=== PATIENT | male | born 1945 | race Caucasian/White ===

== ENCOUNTER 2016-10-23 13:27 | Inpatient (IN) | payer MEDICARE, OTHER ==
[2016-10-23 15:22] VITALS: BMI 50.5
[2016-10-23] MEDS ORDERED: Dextrose 5% in Water 1,000 ML IV PRN (16:57)
[2016-10-23] MEDS ORDERED: Insulin Regular 300 UNITS/3 ML VIAL SC PRN (16:57)
[2016-10-23] MEDS ORDERED: Dextrose 50% Abboject 50 ML SYRINGE SLOW IVP PRN (16:57)
[2016-10-23] MEDS: Carvedilol 3.125 MG TAB PO SCH (18:08)
[2016-10-23 18:19] LABS: Hemoglobin 11.3 g/dL (14.0-18.0); Platelet Count 197 thou/uL (130-400)
[2016-10-23] MEDS: Insulin NPH/Reg Insulin Hm 300 UNITS/3 ML VIAL SC SCH (18:19)
[2016-10-23] MEDS: Insulin Regular 300 UNITS/3 ML VIAL SC PRN (18:38)
[2016-10-23] MEDS: PROVENTIL INHALER 6.7 G (200 INHALATIONS) INH SCH ×2 (18:45→21:37)
[2016-10-23] MEDS ORDERED: Furosemide 40 MG TAB PO SCH (21:00)
[2016-10-23] MEDS: Mometasone/Formoterol 60 PUFF AER INH SCH (21:25)
[2016-10-23] MEDS: Enoxaparin Sodium 100 MG/ML SYRINGE SC SCH (21:28)
[2016-10-23] MEDS: Famotidine 20 MG TAB PO SCH (21:28)
[2016-10-23] MEDS: QUETIAPINE FUMARATE 25 MG PO SCH (21:39)
--- NOTE | 2016-10-23 23:09 | HP ---
DATE OF ADMISSION: 10/23/2016 SWING BED ADMISSION NOTE REASON FOR TRANSFER: Debilitation with weakness and extremely poor long-term prognosis. HISTORY OF PRESENT ILLNESS: Patient is a 71-year-old male who has been in and out of the hospital for almost a month now. Apparently, he was admitted to [facility] the end of September where he stayed for at least a week in the hospital there and was discharge d to a [facility] in the [place] area. After a short stay in the [place], a [facility], avinash olivas was discharged to home under the care of his son and apparently, had an episode of respiratory significant decompensation, hypoxia, and altered mental status where he was sent to the emergency ro om and admitted to [facility] on 10/14/2016. During his hospital stay, he ocampo d waxing and waning of mental status. He was treated for COPD exacerbation as well as acute on film booker yany congestive heart failure exacerbation. His overall prognosis was extremely poor. He had some s light improvement in his diuresis and his respiratory status, but due to his end-stage COPD, his leg al blindness, and overall poor quality of life, has discussions with his son who is his primary deci evens maker and caregiver. Son decided that the patient be appropriate for hospice, but after furthe r discussions, son decided instead see if patient would be eligible for either swing bed or long-ter m care at a nursing facility under [employer] benefits. 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 PAST MEDICAL HISTORY: 1. Congestive heart failure. 2. Chronic obstructive pulmonary disease. 3. Sleep apnea, on CPAP device. 4. Diabetes mellitus, insulin dependent. 5. Hypertension. 6. Hyperlipidemia. 7. Legal blindness. 8. Severe peripheral neuropathy. 9. Coronary artery disease. 10. Depression. 11. Poor debilitation, wheelchair bound status at baseline. PAST SURGICAL HISTORY: Coronary artery bypass x3 in 2005 with multiple stents to the lower extremit ies for peripheral vascular disease. CURRENT MEDICATIONS: Patient was on aspirin 325 mg daily, Coreg 3.125 mg b.i.d., Lasix 40 mg b.i.d. , Seroquel 25 mg b.i.d., acetazolamide 250 mg daily, Ventolin inhalers as needed, vitamin B tablets daily, folic acid daily, Dulera 200/5 mcg two puffs b.i.d., metformin 1000 mg b.i.d., and insulin 70 /30 of Humulin 35 units b.i.d., [place] 10/325 p.o. every 4 hours p.r.n. for chronic back pain. REVIEW OF SYSTEMS: The patient is a poor historian by his report. He reports some mild constipatio n. Denies any current chest pain or shortness of breath above his baseline. He denies any recent c hest pain. His appetite he reports has improved since he has been hospitalized. The patient report s some chronic constipation, recently exacerbated during his hospital stay. The patient reports chr onic decreased sensation to his extremities with wheelchair bound status. The patient denies any dy suria, hematuria, or change in urinary frequency. The patient has chronic rash consistent with sebo rrheic dermatitis and he has chronic back pain, which is at its baseline. PHYSICAL EXAMINATION: GENERAL: Obese white male, alert and oriented x2, but extremely somnolent, but awakens when aroused . VITAL SIGNS: Temperature 98.6, O2 saturation was 94% on 4 liters, blood pressure 129/59, respirator y rate 22, pulse was 73. HEENT: Atraumatic, normocephalic. Extraocular movements are intact. Oropharynx, mucous membranes were moist. NECK: Supple, no masses palpated. CHEST: Heart sounds were distant as well, but regular. ABDOMEN: Obese, soft, nontender, and nondistended. No masses were palpated. EXTREMITIES: No significant edema at this time. Poor sensation to palpation of upper and lower ext remities bilaterally. SKIN: Showed a scaly rash with underlying erythema along the hairline of the powers and scalp, insid e to the nose. ASSESSMENT AND PLAN: 1. Chronic obstructive pulmonary disease, acute on chronic exacerbation, end-stage O2 dependent. T he patient's overall prognosis is extremely poor. We will continue him on Dulera and nebs p.r.n. as well as oxygen to keep saturations greater than 90%. 2. Congestive heart failure with a history of coronary artery disease. Patient will continue his L asix 40 mg b.i.d. We will watch for need for potassium supplementation. 3. Sleep apnea. Patient will continue CPAP device. 4. Diabetes mellitus. We will continue his 70/30 twice a day with a sliding scale coverage as well as metformin. 5. Seborrheic dermatitis. We will treat with econazole cream. 6. Disposition. Patient's overall quality of life is extremely poor. He is legally blind, unable to ambulate. He is having difficulty with transfers. He has been in and out of the hospital now fo r almost a month. There was initial consideration for hospice, which may need to be reevaluated if patient continues to have episodes of exacerbation. Patient is with waxing and waning of mental sta tus with having difficulty making decisions as far as his overall status and plan of care. Patient' s son is actively involved, his medical decision maker. At this time, once patient to be a DNR and consider mcf[facility] placement and/or hospice in the near future if appropriate. At this time, we will initiate physical therapy and occupational therapy to see if patient has any improvement in his status. Again, his overall prognosis is extremely poor.
[2016-10-24] MEDS: PROVENTIL INHALER 6.7 G (200 INHALATIONS) INH SCH ×6 (00:59→21:17)
[2016-10-24] MEDS: Furosemide 40 MG TAB PO SCH ×2 (05:52→14:46)
[2016-10-24] MEDS: Milk Of Magnesia 30 ML UDCUP PO PRN (05:52)
[2016-10-24 06:23] LABS: #Basophils 0.1 thou/uL (0.0-0.2); #Eosinphils 0.2 thou/uL (0.0-0.7); #Lymphocytes 1.1 thou/uL (1.20-3.40); #Monocytes 0.9 thou/uL (0.11-0.59); %Basophils 0.6 % (0.0-1.0); %Eosinophils 2.4 % (0.0-10.0); %Lymphocytes 10.3 % (21.0-51.0); %Monocytes 8.7 % (0.0-10.0); Hemoglobin 12.1 g/dL (14.0-18.0); Mean Corpuscular HGB CONC 32.1 g/dL (32.0-36.0); Mean Corpuscular Hemoglobin 29.5 pg (27.0-31.0); Mean Corpuscular Volume 92.1 fl (80.0-94.0); Platelet Count 213 thou/uL (130-400); Red Blood Cell (RBC) Count 4.11 mill/uL (4.70-6.10); White Blood Cell (WBC) Count 10.2 thou/uL (4.8-10.8)
[2016-10-24 06:42] LABS: ALT (SGPT) 23 U/L (8-55); AST (SGOT) 14 U/L (5-34); Albumin 3.6 g/dL (3.4-4.8); Alkaline Phosphatase 96 U/L (40-150); Anion Gap 14 mmol/L (10-20); BUN (Urea Nitrogen) 39 mg/dL (8.4-25.7); Bilirubin, Total 0.4 mg/dL (0.2-1.2); Calc. Creatinine Clearance 140 mL/min (70-130); Calcium 9.6 mg/dL (7.8-10.44); Carbon Dioxide 26 mmol/L (23-31); Chloride 102 mmol/L (98-107); Estimated GFR-MDRD 68; Glucose 298 mg/dL (80-115); Potassium 4.4 mmol/L (3.5-5.1); Protein, Total 7.6 g/dL (5.8-8.1); Sodium 138 mmol/L (136-145)
[2016-10-24] MEDS: Cyanocobalamin (Vitamin B-12) 1,000 MCG TAB PO SCH (08:40)
[2016-10-24] MEDS: predniSONE 10 MG TAB PO SCH (08:40)
[2016-10-24] MEDS: Famotidine 20 MG TAB PO SCH ×2 (08:40→20:30)
[2016-10-24] MEDS: Aspirin 325 MG TAB PO SCH (08:43)
[2016-10-24] MEDS: Carvedilol 3.125 MG TAB PO SCH ×2 (08:43→16:54)
[2016-10-24] MEDS: Folic Acid 1 MG TAB PO SCH (08:43)
[2016-10-24] MEDS: Enoxaparin Sodium 100 MG/ML SYRINGE SC SCH ×2 (08:44→20:26)
[2016-10-24] MEDS: Insulin NPH/Reg Insulin Hm 300 UNITS/3 ML VIAL SC SCH ×2 (08:51→17:03)
[2016-10-24] MEDS: Insulin Regular 300 UNITS/3 ML VIAL SC PRN ×3 (09:07→18:03)
[2016-10-24] MEDS: Mometasone/Formoterol 60 PUFF AER INH SCH ×2 (09:10→20:30)
[2016-10-24] MEDS: Ketoconazole 2% Cream 15 gm Tube TOP SCH (09:35)
[2016-10-24] MEDS: Polyethylene Glycol 3350 17 GM Packet PO SCH ×3 (11:41→13:33)
[2016-10-24] MEDS: ACETAZOLAMIDE 250 MG PO SCH (11:41)
[2016-10-24] MEDS: QUETIAPINE FUMARATE 25 MG PO SCH ×2 (11:41→21:15)
[2016-10-24] MEDS: Bisacodyl 5 MG TAB PO PRN (14:46)
[2016-10-24] MEDS: HYDROcodone/Acetaminophen 10/325 mg Tablet PO PRN ×2 (15:53→21:33)
[2016-10-24] MEDS ORDERED: Magnesium Citrate 300 ML BOT PO SCH (21:00)
[2016-10-25] MEDS: PROVENTIL INHALER 6.7 G (200 INHALATIONS) INH SCH ×7 (01:05→20:14)
[2016-10-25] MEDS: HYDROcodone/Acetaminophen 10/325 mg Tablet PO PRN ×3 (04:57→20:08)
[2016-10-25] MEDS: Furosemide 40 MG TAB PO SCH ×2 (05:30→13:50)
[2016-10-25 06:41] LABS: Platelet Count 237 thou/uL (130-400)
[2016-10-25] MEDS ORDERED: Magnesium Citrate 300 ML BOT PO PRN (08:00)
[2016-10-25] MEDS: Insulin NPH/Reg Insulin Hm 300 UNITS/3 ML VIAL SC SCH ×2 (10:47→17:32)
[2016-10-25] MEDS: Insulin Regular 300 UNITS/3 ML VIAL SC PRN ×3 (10:48→17:31)
[2016-10-25] MEDS: Mometasone/Formoterol 60 PUFF AER INH SCH ×2 (10:49→20:10)
[2016-10-25] MEDS: Cyanocobalamin (Vitamin B-12) 1,000 MCG TAB PO SCH (10:55)
[2016-10-25] MEDS: Aspirin 325 MG TAB PO SCH (10:55)
[2016-10-25] MEDS: predniSONE 10 MG TAB PO SCH (10:56)
[2016-10-25] MEDS: Carvedilol 3.125 MG TAB PO SCH ×2 (10:56→17:29)
[2016-10-25] MEDS: Famotidine 20 MG TAB PO SCH ×2 (10:56→20:09)
[2016-10-25] MEDS: Enoxaparin Sodium 100 MG/ML SYRINGE SC SCH (10:57)
[2016-10-25] MEDS: Ketoconazole 2% Cream 15 gm Tube TOP SCH (11:01)
[2016-10-25] MEDS: Folic Acid 1 MG TAB PO SCH (11:02)
[2016-10-25] MEDS: ACETAZOLAMIDE 250 MG PO SCH (11:02)
[2016-10-25] MEDS: QUETIAPINE FUMARATE 25 MG PO SCH (11:03)
--- NOTE | 2016-10-25 12:40 | RAD ---
ACUTE ABDOMEN SERIES 10/25/2016 Several films are taken to cover the patient's abdomen. There is no distention of bowel to suggest obstruction. No free air was appreciated. There is perhaps some increase in fecal material in the colon. A rounded calcification or two are seen in the pelvis on the right side. The larger one is 2.5 cm in width. Its etiology is unclear, but it is benign in appearance. A chest film in the seri es shows mild cardiomegaly and some basilar atelectasis. There are no clear congestive changes give n the depth of inspiration. Degenerative changes are present in the spine. IMPRESSION: Nonspecific abdominal findings. POS: HOME
[2016-10-25] MEDS: Clindamycin 150 MG CAP PO SCH ×2 (15:10→20:08)
[2016-10-25] MEDS ORDERED: Fleet Enema 133 ML BOT FS SCH (17:15)
[2016-10-25] MEDS: Rivaroxaban 10 MG TAB PO SCH (17:28)
[2016-10-25] MEDS: Floranex Packet PO SCH (20:08)
[2016-10-26] MEDS: PROVENTIL INHALER 6.7 G (200 INHALATIONS) INH SCH ×3 (01:29→08:46)
[2016-10-26] MEDS: Furosemide 40 MG TAB PO SCH ×2 (06:17→13:21)
[2016-10-26 06:38] LABS: ALT (SGPT) 22 U/L (8-55); AST (SGOT) 14 U/L (5-34); Albumin 3.6 g/dL (3.4-4.8); Alkaline Phosphatase 85 U/L (40-150); Anion Gap 15 mmol/L (10-20); BUN (Urea Nitrogen) 30 mg/dL (8.4-25.7); Bilirubin, Total 0.4 mg/dL (0.2-1.2); Calc. Creatinine Clearance 125 mL/min (70-130); Carbon Dioxide 33 mmol/L (23-31); Chloride 98 mmol/L (98-107); Estimated GFR-MDRD 59; Glucose 231 mg/dL (80-115); Potassium 4.7 mmol/L (3.5-5.1); Protein, Total 7.6 g/dL (5.8-8.1); Sodium 141 mmol/L (136-145)
[2016-10-26 07:10] LABS: #Basophils 0.1 thou/uL (0.0-0.2); #Eosinphils 0.2 thou/uL (0.0-0.7); #Lymphocytes 1.9 thou/uL (1.20-3.40); #Monocytes 0.9 thou/uL (0.11-0.59); #Neutrophils 5.3 thou/uL (1.40-6.50); %Basophils 0.7 % (0.0-1.0); %Eosinophils 2.1 % (0.0-10.0); %Lymphocytes 23.1 % (21.0-51.0); %Monocytes 10.9 % (0.0-10.0); %Neutrophils 63.3 % (42.0-75.0); Mean Corpuscular Hemoglobin 28.9 pg (27.0-31.0); Mean Corpuscular Volume 90.4 fl (80.0-94.0); Mean Platelet Volume 7.6 fL (7.4-10.4); Platelet Count 237 thou/uL (130-400); RBC Distribution Width 14.3 % (11.5-14.5); Red Blood Cell (RBC) Count 4.13 mill/uL (4.70-6.10); White Blood Cell (WBC) Count 8.4 thou/uL (4.8-10.8)
[2016-10-26] MEDS: Floranex Packet PO SCH ×2 (08:42→20:15)
[2016-10-26] MEDS: Clindamycin 150 MG CAP PO SCH ×3 (08:42→20:14)
[2016-10-26] MEDS: Aspirin 325 MG TAB PO SCH (08:42)
[2016-10-26] MEDS: Cyanocobalamin (Vitamin B-12) 1,000 MCG TAB PO SCH (08:43)
[2016-10-26] MEDS: Famotidine 20 MG TAB PO SCH ×2 (08:44→20:14)
[2016-10-26] MEDS: predniSONE 10 MG TAB PO SCH (08:44)
[2016-10-26] MEDS: Folic Acid 1 MG TAB PO SCH (08:45)
[2016-10-26] MEDS: Carvedilol 3.125 MG TAB PO SCH ×2 (08:45→17:33)
[2016-10-26] MEDS: Ketoconazole 2% Cream 15 gm Tube TOP SCH (08:47)
[2016-10-26] MEDS: Mometasone/Formoterol 60 PUFF AER INH SCH ×2 (08:49→20:12)
[2016-10-26] MEDS: ACETAZOLAMIDE 250 MG PO SCH (08:49)
[2016-10-26] MEDS: Polyethylene Glycol 3350 17 GM Packet PO SCH (08:49)
[2016-10-26] MEDS: HYDROcodone/Acetaminophen 10/325 mg Tablet PO PRN ×4 (08:51→21:42)
[2016-10-26] MEDS: Insulin NPH/Reg Insulin Hm 300 UNITS/3 ML VIAL SC SCH ×2 (09:02→17:37)
[2016-10-26] MEDS: Ventolin HFA Inhaler 60 PUFF INHALER INH SCH ×3 (13:26→20:12)
[2016-10-26] MEDS: Insulin Regular 300 UNITS/3 ML VIAL SC PRN ×2 (13:36→18:22)
[2016-10-26] MEDS: Rivaroxaban 10 MG TAB PO SCH (17:33)
[2016-10-27] MEDS: Ventolin HFA Inhaler 60 PUFF INHALER INH SCH ×6 (02:14→21:14)
[2016-10-27] MEDS: HYDROcodone/Acetaminophen 10/325 mg Tablet PO PRN ×5 (03:45→21:22)
[2016-10-27] MEDS: Furosemide 40 MG TAB PO SCH ×2 (05:50→12:57)
[2016-10-27] MEDS: Aspirin 325 MG TAB PO SCH (07:55)
[2016-10-27] MEDS: Floranex Packet PO SCH ×2 (07:55→21:20)
[2016-10-27] MEDS: Clindamycin 150 MG CAP PO SCH ×3 (07:57→21:21)
[2016-10-27] MEDS: Famotidine 20 MG TAB PO SCH ×2 (07:57→21:20)
[2016-10-27] MEDS: Carvedilol 3.125 MG TAB PO SCH ×2 (07:57→16:50)
[2016-10-27] MEDS: predniSONE 10 MG TAB PO SCH (07:58)
[2016-10-27] MEDS: Cyanocobalamin (Vitamin B-12) 1,000 MCG TAB PO SCH (07:59)
[2016-10-27] MEDS: Folic Acid 1 MG TAB PO SCH (07:59)
[2016-10-27] MEDS: Insulin Regular 300 UNITS/3 ML VIAL SC PRN ×3 (08:08→16:58)
[2016-10-27] MEDS: Insulin NPH/Reg Insulin Hm 300 UNITS/3 ML VIAL SC SCH ×2 (08:08→16:48)
[2016-10-27] MEDS: Mometasone/Formoterol 60 PUFF AER INH SCH ×2 (08:13→21:16)
[2016-10-27] MEDS: Ketoconazole 2% Cream 15 gm Tube TOP SCH (08:16)
[2016-10-27] MEDS: ACETAZOLAMIDE 250 MG PO SCH (10:51)
[2016-10-27] MEDS: Polyethylene Glycol 3350 17 GM Packet PO SCH (11:27)
[2016-10-27] MEDS: Rivaroxaban 10 MG TAB PO SCH (16:50)
[2016-10-28] MEDS: Ventolin HFA Inhaler 60 PUFF INHALER INH SCH ×6 (01:23→20:57)
[2016-10-28] MEDS: HYDROcodone/Acetaminophen 10/325 mg Tablet PO PRN ×3 (01:24→09:28)
[2016-10-28 05:20] LABS: Hemoglobin 12.2 g/dL (14.0-18.0); Platelet Count 242 thou/uL (130-400)
[2016-10-28] MEDS: Furosemide 40 MG TAB PO SCH ×2 (05:35→15:51)
[2016-10-28] MEDS: Insulin Regular 300 UNITS/3 ML VIAL SC PRN ×3 (08:28→18:04)
[2016-10-28] MEDS: Insulin NPH/Reg Insulin Hm 300 UNITS/3 ML VIAL SC SCH ×2 (08:29→18:04)
[2016-10-28] MEDS: Polyethylene Glycol 3350 17 GM Packet PO SCH (08:39)
[2016-10-28] MEDS: Ketoconazole 2% Cream 15 gm Tube TOP SCH (08:39)
[2016-10-28] MEDS: Carvedilol 3.125 MG TAB PO SCH ×2 (08:40→18:05)
[2016-10-28] MEDS: Cyanocobalamin (Vitamin B-12) 1,000 MCG TAB PO SCH (08:41)
[2016-10-28] MEDS: predniSONE 10 MG TAB PO SCH (08:42)
[2016-10-28] MEDS: Famotidine 20 MG TAB PO SCH ×2 (08:43→20:56)
[2016-10-28] MEDS: Floranex Packet PO SCH ×2 (08:43→20:55)
[2016-10-28] MEDS: Clindamycin 150 MG CAP PO SCH ×3 (08:43→20:56)
[2016-10-28] MEDS: Aspirin 325 MG TAB PO SCH (08:43)
[2016-10-28] MEDS: Folic Acid 1 MG TAB PO SCH (08:43)
[2016-10-28] MEDS: Mometasone/Formoterol 60 PUFF AER INH SCH ×2 (08:44→20:59)
[2016-10-28] MEDS: ACETAZOLAMIDE 250 MG PO SCH (08:46)
[2016-10-28] MEDS: Pregabalin 75 MG CAP PO SCH ×2 (10:26→20:56)
[2016-10-28] MEDS: Rivaroxaban 10 MG TAB PO SCH (18:05)
[2016-10-29] MEDS: Ventolin HFA Inhaler 60 PUFF INHALER INH SCH ×6 (01:14→20:36)
[2016-10-29] MEDS: Furosemide 40 MG TAB PO SCH ×2 (05:45→13:10)
[2016-10-29] MEDS: Polyethylene Glycol 3350 17 GM Packet PO SCH (09:39)
[2016-10-29] MEDS: Aspirin 325 MG TAB PO SCH (09:44)
[2016-10-29] MEDS: Clindamycin 150 MG CAP PO SCH ×3 (09:44→20:34)
[2016-10-29] MEDS: Cyanocobalamin (Vitamin B-12) 1,000 MCG TAB PO SCH (09:46)
[2016-10-29] MEDS: Folic Acid 1 MG TAB PO SCH (09:47)
[2016-10-29] MEDS: Famotidine 20 MG TAB PO SCH ×2 (09:47→20:34)
[2016-10-29] MEDS: predniSONE 10 MG TAB PO SCH (09:50)
[2016-10-29] MEDS: Pregabalin 75 MG CAP PO SCH ×2 (09:51→20:40)
[2016-10-29] MEDS: Carvedilol 3.125 MG TAB PO SCH ×2 (09:53→16:03)
[2016-10-29] MEDS: Ketoconazole 2% Cream 15 gm Tube TOP SCH (09:54)
[2016-10-29] MEDS: Mometasone/Formoterol 60 PUFF AER INH SCH ×2 (09:54→20:35)
[2016-10-29] MEDS: Floranex Packet PO SCH ×2 (09:54→20:33)
[2016-10-29] MEDS: ACETAZOLAMIDE 250 MG PO SCH (09:56)
[2016-10-29] MEDS: Insulin Regular 300 UNITS/3 ML VIAL SC PRN ×3 (09:57→18:14)
[2016-10-29] MEDS: Insulin NPH/Reg Insulin Hm 300 UNITS/3 ML VIAL SC SCH ×2 (09:58→18:14)
[2016-10-29] MEDS: HYDROcodone/Acetaminophen 10/325 mg Tablet PO PRN ×2 (11:08→16:03)
[2016-10-29] MEDS: Milk Of Magnesia 30 ML UDCUP PO PRN (12:02)
[2016-10-29] MEDS: Bisacodyl 5 MG TAB PO PRN (16:02)
[2016-10-29] MEDS: Rivaroxaban 10 MG TAB PO SCH ×2 (16:35→20:37)
[2016-10-29 18:06] LABS: Anion Gap 18 mmol/L (10-20); BUN (Urea Nitrogen) 40 mg/dL (8.4-25.7); Calc. Creatinine Clearance 113 mL/min (70-130); Calcium 10.1 mg/dL (7.8-10.44); Carbon Dioxide 28 mmol/L (23-31); Chloride 96 mmol/L (98-107); Estimated GFR-MDRD 53; Glucose 372 mg/dL (80-115); Potassium 4.8 mmol/L (3.5-5.1); Sodium 137 mmol/L (136-145)
[2016-10-29] MEDS ORDERED: Rivaroxaban 10 MG TAB ONE (20:32)
[2016-10-29] MEDS: Magnesium Citrate 300 ML BOT PO SCH (20:33)
[2016-10-30] MEDS: Ventolin HFA Inhaler 60 PUFF INHALER INH SCH ×6 (00:50→20:42)
[2016-10-30] MEDS: HYDROcodone/Acetaminophen 10/325 mg Tablet PO PRN ×3 (00:55→17:30)
[2016-10-30 05:20] LABS: Hemoglobin 13.2 g/dL (14.0-18.0); Platelet Count 234 thou/uL (130-400)
[2016-10-30] MEDS: Furosemide 40 MG TAB PO SCH ×2 (05:22→14:02)
[2016-10-30] MEDS: Mometasone/Formoterol 60 PUFF AER INH SCH ×2 (09:48→20:43)
[2016-10-30] MEDS: Polyethylene Glycol 3350 17 GM Packet PO SCH (10:13)
[2016-10-30] MEDS: Milk Of Magnesia 30 ML UDCUP PO PRN ×2 (10:20→10:41)
[2016-10-30] MEDS: Aspirin 325 MG TAB PO SCH (10:20)
[2016-10-30] MEDS: Clindamycin 150 MG CAP PO SCH ×3 (10:22→20:41)
[2016-10-30] MEDS: Folic Acid 1 MG TAB PO SCH (10:23)
[2016-10-30] MEDS: Cyanocobalamin (Vitamin B-12) 1,000 MCG TAB PO SCH (10:24)
[2016-10-30] MEDS: Ketoconazole 2% Cream 15 gm Tube TOP SCH (10:30)
[2016-10-30] MEDS: Famotidine 20 MG TAB PO SCH ×2 (10:30→20:41)
[2016-10-30] MEDS: Carvedilol 3.125 MG TAB PO SCH ×2 (10:31→17:30)
[2016-10-30] MEDS: predniSONE 10 MG TAB PO SCH (10:34)
[2016-10-30] MEDS: Pregabalin 75 MG CAP PO SCH ×2 (10:36→20:41)
[2016-10-30] MEDS: Floranex Packet PO SCH ×2 (10:37→20:41)
[2016-10-30] MEDS: ACETAZOLAMIDE 250 MG PO SCH (10:38)
[2016-10-30] MEDS: Insulin NPH/Reg Insulin Hm 300 UNITS/3 ML VIAL SC SCH ×2 (10:39→17:40)
[2016-10-30] MEDS: Insulin Regular 300 UNITS/3 ML VIAL SC PRN ×3 (10:40→17:40)
[2016-10-30] MEDS: Bisacodyl 5 MG TAB PO PRN (13:44)
[2016-10-30] MEDS ORDERED: Clindamycin 150 MG CAP ONE (17:17)
[2016-10-30] MEDS: Rivaroxaban 10 MG TAB PO SCH (17:29)
[2016-10-30] MEDS: Magnesium Citrate 300 ML BOT PO SCH (17:34)
[2016-10-31] MEDS: Ventolin HFA Inhaler 60 PUFF INHALER INH SCH ×6 (00:01→22:30)
[2016-10-31] MEDS: HYDROcodone/Acetaminophen 10/325 mg Tablet PO PRN ×2 (05:47→18:14)
[2016-10-31] MEDS: Furosemide 40 MG TAB PO SCH ×2 (05:47→16:09)
[2016-10-31] MEDS ORDERED: Clindamycin 150 MG CAP ONE ×5 (08:04→21:18)
[2016-10-31] MEDS: Carvedilol 3.125 MG TAB PO SCH ×2 (10:46→17:48)
[2016-10-31] MEDS: Floranex Packet PO SCH ×2 (10:47→22:18)
[2016-10-31] MEDS: Folic Acid 1 MG TAB PO SCH (10:47)
[2016-10-31] MEDS: Cyanocobalamin (Vitamin B-12) 1,000 MCG TAB PO SCH (10:47)
[2016-10-31] MEDS: Clindamycin 150 MG CAP PO SCH ×3 (10:48→22:18)
[2016-10-31] MEDS: Aspirin 325 MG TAB PO SCH (10:49)
[2016-10-31] MEDS: Polyethylene Glycol 3350 17 GM Packet PO SCH (10:50)
[2016-10-31] MEDS: Ketoconazole 2% Cream 15 gm Tube TOP SCH (10:51)
[2016-10-31] MEDS: Famotidine 20 MG TAB PO SCH ×2 (10:51→22:18)
[2016-10-31] MEDS: predniSONE 10 MG TAB PO SCH (10:52)
[2016-10-31] MEDS: ACETAZOLAMIDE 250 MG PO SCH (10:53)
[2016-10-31] MEDS: Mometasone/Formoterol 60 PUFF AER INH SCH ×2 (10:54→22:22)
[2016-10-31] MEDS: Pregabalin 75 MG CAP PO SCH ×2 (10:56→22:19)
[2016-10-31] MEDS: Insulin NPH/Reg Insulin Hm 300 UNITS/3 ML VIAL SC SCH ×2 (10:58→17:54)
[2016-10-31] MEDS: Insulin Regular 300 UNITS/3 ML VIAL SC PRN ×3 (10:59→19:05)
[2016-10-31] MEDS: Rivaroxaban 10 MG TAB PO SCH (17:48)
[2016-11-01] MEDS: Ventolin HFA Inhaler 60 PUFF INHALER INH SCH ×6 (01:19→20:42)
[2016-11-01] MEDS: HYDROcodone/Acetaminophen 10/325 mg Tablet PO PRN ×2 (01:28→09:31)
[2016-11-01] MEDS: Furosemide 40 MG TAB PO SCH ×2 (05:33→14:02)
[2016-11-01 05:57] LABS: Hemoglobin 12.4 g/dL (14.0-18.0); Platelet Count 227 thou/uL (130-400)
[2016-11-01] MEDS ORDERED: Clindamycin 150 MG CAP ONE (08:54)
[2016-11-01] MEDS: Insulin NPH/Reg Insulin Hm 300 UNITS/3 ML VIAL SC SCH ×2 (09:19→18:10)
[2016-11-01] MEDS: Insulin Regular 300 UNITS/3 ML VIAL SC PRN ×4 (09:20→22:57)
[2016-11-01] MEDS: Clindamycin 150 MG CAP PO SCH ×3 (09:21→20:40)
[2016-11-01] MEDS: Aspirin 325 MG TAB PO SCH (09:23)
[2016-11-01] MEDS: Cyanocobalamin (Vitamin B-12) 1,000 MCG TAB PO SCH (09:23)
[2016-11-01] MEDS: Floranex Packet PO SCH ×2 (09:23→20:40)
[2016-11-01] MEDS: Folic Acid 1 MG TAB PO SCH (09:24)
[2016-11-01] MEDS: Carvedilol 3.125 MG TAB PO SCH ×2 (09:25→18:09)
[2016-11-01] MEDS: ACETAZOLAMIDE 250 MG PO SCH (09:26)
[2016-11-01] MEDS: Polyethylene Glycol 3350 17 GM Packet PO SCH (09:27)
[2016-11-01] MEDS: Ketoconazole 2% Cream 15 gm Tube TOP SCH (09:28)
[2016-11-01] MEDS: predniSONE 10 MG TAB PO SCH (09:29)
[2016-11-01] MEDS: Pregabalin 75 MG CAP PO SCH ×2 (09:30→20:40)
[2016-11-01] MEDS: Famotidine 20 MG TAB PO SCH ×2 (09:55→20:41)
[2016-11-01] MEDS: Mometasone/Formoterol 60 PUFF AER INH SCH ×2 (09:55→20:42)
[2016-11-01] MEDS: Rivaroxaban 10 MG TAB PO SCH (18:09)
[2016-11-02] MEDS: HYDROcodone/Acetaminophen 10/325 mg Tablet PO PRN ×3 (00:51→17:42)
[2016-11-02] MEDS: Ventolin HFA Inhaler 60 PUFF INHALER INH SCH ×3 (00:52→10:08)
[2016-11-02] MEDS: Furosemide 40 MG TAB PO SCH ×2 (05:34→13:53)
[2016-11-02] MEDS: Polyethylene Glycol 3350 17 GM Packet PO SCH (09:40)
[2016-11-02] MEDS: predniSONE 10 MG TAB PO SCH (09:40)
[2016-11-02] MEDS: Carvedilol 3.125 MG TAB PO SCH ×2 (09:41→17:32)
[2016-11-02] MEDS: Cyanocobalamin (Vitamin B-12) 1,000 MCG TAB PO SCH (09:41)
[2016-11-02] MEDS: Pregabalin 75 MG CAP PO SCH ×2 (09:43→21:19)
[2016-11-02] MEDS: Folic Acid 1 MG TAB PO SCH (09:44)
[2016-11-02] MEDS: Insulin NPH/Reg Insulin Hm 300 UNITS/3 ML VIAL SC SCH ×2 (09:44→17:34)
[2016-11-02] MEDS: Famotidine 20 MG TAB PO SCH ×2 (09:44→21:19)
[2016-11-02] MEDS: Aspirin 325 MG TAB PO SCH (09:53)
[2016-11-02] MEDS: Insulin Regular 300 UNITS/3 ML VIAL SC PRN ×4 (09:58→21:19)
[2016-11-02] MEDS: Mometasone/Formoterol 60 PUFF AER INH SCH ×2 (10:03→21:20)
[2016-11-02] MEDS: Ketoconazole 2% Cream 15 gm Tube TOP SCH (10:05)
[2016-11-02] MEDS: ACETAZOLAMIDE 250 MG PO SCH (10:08)
[2016-11-02] MEDS: PROVENTIL INHALER 6.7 G (200 INHALATIONS) INH SCH ×4 (11:22→23:47)
[2016-11-02] MEDS ORDERED: Ventolin HFA Inhaler 60 PUFF INHALER INH SCH (16:15)
[2016-11-02] MEDS: Rivaroxaban 10 MG TAB PO SCH (17:32)
[2016-11-03] MEDS: PROVENTIL INHALER 6.7 G (200 INHALATIONS) INH SCH ×6 (03:54→23:43)
[2016-11-03] MEDS: Furosemide 40 MG TAB PO SCH ×2 (05:01→14:30)
[2016-11-03 05:30] LABS: Hemoglobin 12.4 g/dL (14.0-18.0); Platelet Count 194 thou/uL (130-400)
[2016-11-03 05:44] LABS: ALT (SGPT) 26 U/L (8-55); AST (SGOT) 15 U/L (5-34); Albumin 3.5 g/dL (3.4-4.8); Alkaline Phosphatase 73 U/L (40-150); Anion Gap 16 mmol/L (10-20); BUN (Urea Nitrogen) 40 mg/dL (8.4-25.7); Bilirubin, Total 0.3 mg/dL (0.2-1.2); Calc. Creatinine Clearance 125 mL/min (70-130); Calcium 9.9 mg/dL (7.8-10.44); Chloride 102 mmol/L (98-107); Estimated GFR-MDRD 59; Globulin 3.4 g/dL (2.4-3.5); Glucose 235 mg/dL (80-115); Potassium 4.2 mmol/L (3.5-5.1); Protein, Total 6.9 g/dL (5.8-8.1); Sodium 138 mmol/L (136-145)
[2016-11-03 05:52] LABS: Carbon Dioxide 24 mmol/L (23-31)
[2016-11-03] MEDS: Polyethylene Glycol 3350 17 GM Packet PO SCH (09:23)
[2016-11-03] MEDS: ACETAZOLAMIDE 250 MG PO SCH (09:24)
[2016-11-03] MEDS: Cyanocobalamin (Vitamin B-12) 1,000 MCG TAB PO SCH (09:25)
[2016-11-03] MEDS: Famotidine 20 MG TAB PO SCH ×2 (09:26→21:02)
[2016-11-03] MEDS: Folic Acid 1 MG TAB PO SCH (09:26)
[2016-11-03] MEDS: Aspirin 325 MG TAB PO SCH (09:26)
[2016-11-03] MEDS: Pregabalin 75 MG CAP PO SCH ×2 (09:27→21:01)
[2016-11-03] MEDS: predniSONE 10 MG TAB PO SCH (09:27)
[2016-11-03] MEDS: Carvedilol 3.125 MG TAB PO SCH ×2 (09:28→17:28)
[2016-11-03] MEDS: Insulin NPH/Reg Insulin Hm 300 UNITS/3 ML VIAL SC SCH ×2 (09:34→17:30)
[2016-11-03] MEDS: Insulin Regular 300 UNITS/3 ML VIAL SC PRN ×4 (09:35→21:20)
[2016-11-03] MEDS: Mometasone/Formoterol 60 PUFF AER INH SCH ×2 (09:37→21:07)
[2016-11-03] MEDS: Ketoconazole 2% Cream 15 gm Tube TOP SCH (09:37)
[2016-11-03] MEDS: HYDROcodone/Acetaminophen 10/325 mg Tablet PO PRN ×2 (11:57→21:19)
[2016-11-03] MEDS: Rivaroxaban 10 MG TAB PO SCH (17:28)
[2016-11-04] MEDS: PROVENTIL INHALER 6.7 G (200 INHALATIONS) INH SCH ×6 (04:31→23:02)
[2016-11-04] MEDS: Furosemide 40 MG TAB PO SCH ×2 (06:09→15:02)
[2016-11-04] MEDS: HYDROcodone/Acetaminophen 10/325 mg Tablet PO PRN ×2 (06:15→12:07)
[2016-11-04] MEDS: Aspirin 325 MG TAB PO SCH (09:22)
[2016-11-04] MEDS: Cyanocobalamin (Vitamin B-12) 1,000 MCG TAB PO SCH (09:22)
[2016-11-04] MEDS: predniSONE 10 MG TAB PO SCH (09:23)
[2016-11-04] MEDS: Polyethylene Glycol 3350 17 GM Packet PO SCH (09:25)
[2016-11-04] MEDS: Famotidine 20 MG TAB PO SCH ×2 (09:25→21:16)
[2016-11-04] MEDS: ACETAZOLAMIDE 250 MG PO SCH (09:25)
[2016-11-04] MEDS: Folic Acid 1 MG TAB PO SCH (09:25)
[2016-11-04] MEDS: Carvedilol 3.125 MG TAB PO SCH ×2 (09:25→17:13)
[2016-11-04] MEDS: Pregabalin 75 MG CAP PO SCH ×2 (09:26→21:16)
[2016-11-04] MEDS: Insulin Regular 300 UNITS/3 ML VIAL SC PRN ×3 (09:31→21:22)
[2016-11-04] MEDS: Ketoconazole 2% Cream 15 gm Tube TOP SCH (09:31)
[2016-11-04] MEDS: Insulin NPH/Reg Insulin Hm 300 UNITS/3 ML VIAL SC SCH ×2 (09:32→17:15)
[2016-11-04] MEDS: Mometasone/Formoterol 60 PUFF AER INH SCH ×2 (10:14→21:20)
[2016-11-04] MEDS: Rivaroxaban 10 MG TAB PO SCH (17:13)
[2016-11-05] MEDS: PROVENTIL INHALER 6.7 G (200 INHALATIONS) INH SCH ×6 (03:05→23:12)
[2016-11-05] MEDS: Furosemide 40 MG TAB PO SCH ×2 (05:52→13:52)
[2016-11-05] MEDS: HYDROcodone/Acetaminophen 10/325 mg Tablet PO PRN ×2 (05:52→15:43)
[2016-11-05 06:01] LABS: Hemoglobin 12.7 g/dL (14.0-18.0); Platelet Count 182 thou/uL (130-400)
[2016-11-05] MEDS: Insulin NPH/Reg Insulin Hm 300 UNITS/3 ML VIAL SC SCH ×2 (10:33→18:08)
[2016-11-05] MEDS: Insulin Regular 300 UNITS/3 ML VIAL SC PRN ×4 (10:37→23:12)
[2016-11-05] MEDS: Polyethylene Glycol 3350 17 GM Packet PO SCH (10:38)
[2016-11-05] MEDS: Cyanocobalamin (Vitamin B-12) 1,000 MCG TAB PO SCH (10:40)
[2016-11-05] MEDS: Folic Acid 1 MG TAB PO SCH (10:41)
[2016-11-05] MEDS: Carvedilol 3.125 MG TAB PO SCH ×2 (10:42→18:05)
[2016-11-05] MEDS: Aspirin 325 MG TAB PO SCH (10:42)
[2016-11-05] MEDS: Famotidine 20 MG TAB PO SCH ×2 (10:42→20:52)
[2016-11-05] MEDS: Ketoconazole 2% Cream 15 gm Tube TOP SCH (10:42)
[2016-11-05] MEDS: ACETAZOLAMIDE 250 MG PO SCH (10:42)
[2016-11-05] MEDS: predniSONE 10 MG TAB PO SCH (10:43)
[2016-11-05] MEDS: Pregabalin 75 MG CAP PO SCH ×2 (10:43→20:52)
[2016-11-05] MEDS: Mometasone/Formoterol 60 PUFF AER INH SCH ×2 (10:46→22:41)
[2016-11-05] MEDS: Rivaroxaban 10 MG TAB PO SCH (18:05)
[2016-11-06] MEDS: HYDROcodone/Acetaminophen 10/325 mg Tablet PO PRN ×2 (00:40→16:45)
[2016-11-06] MEDS: PROVENTIL INHALER 6.7 G (200 INHALATIONS) INH SCH ×6 (03:58→23:14)
[2016-11-06] MEDS: Polyethylene Glycol 3350 17 GM Packet PO SCH (09:06)
[2016-11-06] MEDS: ACETAZOLAMIDE 250 MG PO SCH (09:07)
[2016-11-06] MEDS: Mometasone/Formoterol 60 PUFF AER INH SCH ×2 (09:07→21:19)
[2016-11-06] MEDS: Ketoconazole 2% Cream 15 gm Tube TOP SCH (09:10)
[2016-11-06] MEDS: Cyanocobalamin (Vitamin B-12) 1,000 MCG TAB PO SCH (09:12)
[2016-11-06] MEDS: Aspirin 325 MG TAB PO SCH (09:13)
[2016-11-06] MEDS: Famotidine 20 MG TAB PO SCH ×2 (09:13→21:18)
[2016-11-06] MEDS: predniSONE 10 MG TAB PO SCH (09:15)
[2016-11-06] MEDS: Furosemide 40 MG TAB PO SCH ×2 (09:16→14:39)
[2016-11-06] MEDS: Folic Acid 1 MG TAB PO SCH (09:16)
[2016-11-06] MEDS: Carvedilol 3.125 MG TAB PO SCH ×2 (09:16→16:47)
[2016-11-06] MEDS: Pregabalin 75 MG CAP PO SCH ×2 (09:16→21:18)
[2016-11-06] MEDS: Insulin NPH/Reg Insulin Hm 300 UNITS/3 ML VIAL SC SCH ×2 (09:20→16:48)
[2016-11-06] MEDS: Insulin Regular 300 UNITS/3 ML VIAL SC PRN ×4 (09:22→22:11)
[2016-11-06] MEDS: Rivaroxaban 10 MG TAB PO SCH (16:46)
[2016-11-07] MEDS: HYDROcodone/Acetaminophen 10/325 mg Tablet PO PRN ×3 (01:15→21:17)
[2016-11-07] MEDS: PROVENTIL INHALER 6.7 G (200 INHALATIONS) INH SCH ×6 (03:57→20:47)
[2016-11-07] MEDS: Furosemide 40 MG TAB PO SCH ×2 (05:25→14:39)
[2016-11-07 06:12] LABS: Platelet Count 154 thou/uL (130-400)
[2016-11-07] MEDS: Milk Of Magnesia 30 ML UDCUP PO PRN (08:21)
[2016-11-07] MEDS: Polyethylene Glycol 3350 17 GM Packet PO SCH (08:21)
[2016-11-07] MEDS: Aspirin 325 MG TAB PO SCH (08:22)
[2016-11-07] MEDS: Cyanocobalamin (Vitamin B-12) 1,000 MCG TAB PO SCH (08:23)
[2016-11-07] MEDS: predniSONE 10 MG TAB PO SCH (08:24)
[2016-11-07] MEDS: Famotidine 20 MG TAB PO SCH ×2 (08:24→20:19)
[2016-11-07] MEDS: Carvedilol 3.125 MG TAB PO SCH ×2 (08:25→16:48)
[2016-11-07] MEDS: Folic Acid 1 MG TAB PO SCH (08:25)
[2016-11-07] MEDS: Pregabalin 75 MG CAP PO SCH ×2 (08:26→20:20)
[2016-11-07] MEDS: ACETAZOLAMIDE 250 MG PO SCH (08:27)
[2016-11-07] MEDS: Ketoconazole 2% Cream 15 gm Tube TOP SCH (08:28)
[2016-11-07] MEDS: Insulin NPH/Reg Insulin Hm 300 UNITS/3 ML VIAL SC SCH ×2 (08:29→16:49)
[2016-11-07] MEDS: Insulin Regular 300 UNITS/3 ML VIAL SC PRN ×4 (08:29→20:23)
[2016-11-07] MEDS: Mometasone/Formoterol 60 PUFF AER INH SCH ×2 (11:17→20:56)
[2016-11-07] MEDS: Rivaroxaban 10 MG TAB PO SCH (16:47)
[2016-11-07] MEDS ORDERED: FLU VACC TS2017-18 (>65YR) 0.5 ML SYRINGE IM ONE (21:00)
[2016-11-08] MEDS: PROVENTIL INHALER 6.7 G (200 INHALATIONS) INH SCH ×6 (03:46→23:59)
[2016-11-08] MEDS: Furosemide 40 MG TAB PO SCH ×2 (05:50→13:11)
[2016-11-08] MEDS: HYDROcodone/Acetaminophen 10/325 mg Tablet PO PRN ×2 (05:51→18:23)
[2016-11-08] MEDS: Insulin NPH/Reg Insulin Hm 300 UNITS/3 ML VIAL SC SCH ×2 (08:59→18:22)
[2016-11-08] MEDS: Polyethylene Glycol 3350 17 GM Packet PO SCH (09:00)
[2016-11-08] MEDS: Insulin Regular 300 UNITS/3 ML VIAL SC PRN ×4 (09:00→22:51)
[2016-11-08] MEDS: Aspirin 325 MG TAB PO SCH (09:01)
[2016-11-08] MEDS: Cyanocobalamin (Vitamin B-12) 1,000 MCG TAB PO SCH (09:03)
[2016-11-08] MEDS: Famotidine 20 MG TAB PO SCH ×2 (09:03→21:02)
[2016-11-08] MEDS: predniSONE 10 MG TAB PO SCH (09:04)
[2016-11-08] MEDS: Folic Acid 1 MG TAB PO SCH (09:05)
[2016-11-08] MEDS: Ketoconazole 2% Cream 15 gm Tube TOP SCH (09:05)
[2016-11-08] MEDS: Carvedilol 3.125 MG TAB PO SCH ×2 (09:06→18:21)
[2016-11-08] MEDS: ACETAZOLAMIDE 250 MG PO SCH (09:07)
[2016-11-08] MEDS: Mometasone/Formoterol 60 PUFF AER INH SCH ×2 (09:08→21:01)
[2016-11-08] MEDS: Pregabalin 75 MG CAP PO SCH ×2 (09:10→21:04)
[2016-11-08] MEDS ORDERED: Sodium Chloride 0.9% 50 ML ONE (10:17)
[2016-11-08 14:13] LABS: #Eosinphils 0.1 thou/uL (0.0-0.7); #Lymphocytes 1.4 thou/uL (1.20-3.40); #Monocytes 0.5 thou/uL (0.11-0.59); #Neutrophils 6.9 thou/uL (1.40-6.50); %Basophils 0.5 % (0.0-1.0); %Eosinophils 1.1 % (0.0-10.0); %Lymphocytes 15.5 % (21.0-51.0); %Monocytes 5.9 % (0.0-10.0); Mean Corpuscular HGB CONC 32.2 g/dL (32.0-36.0); Mean Corpuscular Volume 90.2 fl (80.0-94.0); Mean Platelet Volume 7.6 fL (7.4-10.4); Platelet Count 146 thou/uL (130-400); RBC Distribution Width 14.9 % (11.5-14.5); Red Blood Cell (RBC) Count 4.14 mill/uL (4.70-6.10); White Blood Cell (WBC) Count 8.9 thou/uL (4.8-10.8)
[2016-11-08 14:19] LABS: ALT (SGPT) 22 U/L (8-55); AST (SGOT) 12 U/L (5-34); Albumin 3.5 g/dL (3.4-4.8); Alkaline Phosphatase 79 U/L (40-150); Anion Gap 15 mmol/L (10-20); BUN (Urea Nitrogen) 34 mg/dL (8.4-25.7); Bilirubin, Total 0.2 mg/dL (0.2-1.2); Calc. Creatinine Clearance 138 mL/min (70-130); Calcium 9.9 mg/dL (7.8-10.44); Carbon Dioxide 26 mmol/L (23-31); Chloride 102 mmol/L (98-107); Estimated GFR-MDRD 67; Globulin 3.5 g/dL (2.4-3.5); Glucose 260 mg/dL (80-115); Potassium 4.5 mmol/L (3.5-5.1); Sodium 138 mmol/L (136-145)
[2016-11-08] MEDS: Rivaroxaban 10 MG TAB PO SCH (18:20)
[2016-11-09] MEDS: PROVENTIL INHALER 6.7 G (200 INHALATIONS) INH SCH ×3 (04:03→13:40)
[2016-11-09] MEDS: Furosemide 40 MG TAB PO SCH ×2 (05:27→13:39)
[2016-11-09] MEDS: HYDROcodone/Acetaminophen 10/325 mg Tablet PO PRN ×2 (05:27→17:37)
[2016-11-09 06:31] LABS: Hemoglobin 12.9 g/dL (14.0-18.0); Platelet Count 171 thou/uL (130-400)
[2016-11-09] MEDS: Insulin Regular 300 UNITS/3 ML VIAL SC PRN ×3 (08:36→16:38)
[2016-11-09] MEDS: Insulin NPH/Reg Insulin Hm 300 UNITS/3 ML VIAL SC SCH ×2 (08:37→16:37)
[2016-11-09] MEDS: Ketoconazole 2% Cream 15 gm Tube TOP SCH (08:38)
[2016-11-09] MEDS: Polyethylene Glycol 3350 17 GM Packet PO SCH (08:39)
[2016-11-09] MEDS: Aspirin 325 MG TAB PO SCH (08:40)
[2016-11-09] MEDS: Famotidine 20 MG TAB PO SCH ×2 (08:40→19:06)
[2016-11-09] MEDS: Cyanocobalamin (Vitamin B-12) 1,000 MCG TAB PO SCH (08:41)
[2016-11-09] MEDS: Folic Acid 1 MG TAB PO SCH (08:42)
[2016-11-09] MEDS: Carvedilol 3.125 MG TAB PO SCH ×2 (08:42→16:46)
[2016-11-09] MEDS: Pregabalin 75 MG CAP PO SCH ×2 (08:43→19:05)
[2016-11-09] MEDS: predniSONE 10 MG TAB PO SCH (08:44)
[2016-11-09] MEDS: ACETAZOLAMIDE 250 MG PO SCH (08:45)
[2016-11-09] MEDS: Mometasone/Formoterol 60 PUFF AER INH SCH ×2 (08:45→19:07)
[2016-11-09] MEDS: Ventolin HFA Inhaler 60 PUFF INHALER INH SCH ×3 (13:44→17:39)
[2016-11-09] MEDS: Rivaroxaban 10 MG TAB PO SCH (16:42)
[2016-11-09 16:53] VITALS: BP 141/63; TEMP 98.3
== END 2016-11-09 19:44 | disposition home health service (06) | DRG 191 ==
LOC: BURMED 14:34
PROVIDERS: ADMIT Family Medicine; ATTEND Family Medicine
DX: J44.1 Chronic obstructive pulmonary disease with (acute) exacerbation (principal); Z68.43 Body mass index [BMI] 50.0-59.9, adult; I11.0 Hypertensive heart disease with heart failure; I50.9 Heart failure, unspecified; E11.42 Type 2 diabetes mellitus with diabetic polyneuropathy; Z99.81 Dependence on supplemental oxygen; R53.1 Weakness; E66.9 Obesity, unspecified; G47.30 Sleep apnea, unspecified; H54.8 Legal blindness, as defined in USA; Z79.4 Long term (current) use of insulin; E78.5 Hyperlipidemia, unspecified; I25.10 Atherosclerotic heart disease of native coronary artery without angina pectoris; Z95.1 Presence of aortocoronary bypass graft; F32.9 Major depressive disorder, single episode, unspecified; L21.9 Seborrheic dermatitis, unspecified; K59.09 Other constipation; G89.29 Other chronic pain; M54.9 Dorsalgia, unspecified; Z66 Do not resuscitate; Z99.3 Dependence on wheelchair; S30.1XXA Contusion of abdominal wall, initial encounter; X58.XXXA Exposure to other specified factors, initial encounter; Z86.718 Personal history of other venous thrombosis and embolism; Z79.82 Long term (current) use of aspirin
CPT/HCPCS: 36415; 36416; 74022; 80048; 80053; 82565; 85014; 85018; 85025; 85049; 94664; A4216; G8978-GP-CN; G8979-GP-CL; G8987-GO-CM; G8988-GO-CL; G8996-GN-CJ; G8997-GN-CJ; J1650; J1815; J7512